=== PATIENT | male | born 1965 ===

== ENCOUNTER 2025-06-09 16:08 | Emergency (ER) | payer OTHER ==
[2025-06-09] MEDS: Ondansetron 4 MG/2 ML SDV IVPUSH ONE (16:16)
[2025-06-09] MEDS: fentaNYL 50 MCG/ML SDV IVPUSH ONE (16:16)
[2025-06-09] MEDS ORDERED: Sodium Chloride 0.9% 10 ML Syringe FLUSH PRN (16:37)
[2025-06-09] MEDS ORDERED: Sodium Chloride 0.9% 2.5 ML Syringe FLUSH PRN (16:37)
[2025-06-09 16:42] LABS: BASOPHILS ABSOLUTE AUTO 0.04 K/uL (0.00-0.20); BASOPHILS PERCENT AUTO 0.3 % (0.0-1.0); EOSINOPHILS ABSOLUTE AUTO 0.02 K/uL (0.00-0.45); EOSINOPHILS PERCENT AUTO 0.2 % (0.0-6.0); IMMATURE GRAN ABSOLUTE AUTO 0.03 K/uL (0.00-0.05); IMMATURE GRAN PERCENT AUTO 0.2 % (0.0-0.4); LYMPHOCYTES ABSOLUTE AUTO 1.79 K/uL (1.00-4.80); LYMPHOCYTES PERCENT AUTO 13.9 % (24.0-44.0); MEAN PLATELET VOLUME 11.3 fL (9.4-12.4); MONOCYTES ABSOLUTE AUTO 0.65 K/uL (0.00-0.80); MONOCYTES PERCENT AUTO 5.1 % (0.0-8.0); NEUTROPHILS ABSOLUTE AUTO 10.33 K/uL (1.80-7.70); NEUTROPHILS PERCENT AUTO 80.3 % (41.0-71.0); NRBC ABSOLUTE 0.00 K/uL (0.00-0.02); NRBC PERCENT 0.0 /100WBC (0.0-0.2); PLATELET COUNT,PLT 218 K/uL (150-400); RED BLOOD CELL COUNT 4.67 M/uL (4.52-5.90); WHITE BLOOD CELL COUNT,WBC 12.86 K/uL (3.9-11.3)
[2025-06-09 16:53] LABS: INR 1.07 (0.86-1.11)
[2025-06-09] MEDS: fentaNYL 50 MCG/ML SDV ONE (17:00)
[2025-06-09] MEDS: Ondansetron 4 MG/2 ML SDV ONE (17:00)
[2025-06-09] MEDS: Diphtheria,Pertussis(Acell),Tetanus Vaccine 0.5 ML Syringe IM ONE (17:02)
[2025-06-09 17:11] LABS: A/G RATIO 1.0 (0.9-1.6); ALANINE AMINOTRANSFERASE,ALT 33.0 IU/L (14-63); ASPARTATE AMNIOTRANSFERASE,AST 35.0 IU/L (15-37); BILIRUBIN TOTAL 0.7 mg/dL (0.2-1.0); BLOOD UREA NITROGEN,BUN 15.0 mg/dL (7.0-18.0); CARBON DIOXIDE,CO2 26.7 mmol/L (21.0-32.0); CHLORIDE,CL 101.0 mmol/L (98-107); CREATININE 1.1 mg/dL (0.8-1.3); EST CRCL DRUG DOSING (CG) 80.34 mL/min; GLUCOSE RANDOM 124.0 mg/dL (74-106); POTASSIUM,K 3.8 mmol/L (3.5-5.1); PRO B-TYPE NATRIUR PEPT,BNPPRO 1360.0 pg/mL (0-125); PROTEIN TOTAL,TP 7.7 g/dL (6.4-8.2); SODIUM,NA 138.0 mmol/L (136-148)
[2025-06-09 17:12] LABS: ESTIMATED GFR 78.0 mL/min (>60)
[2025-06-09] MEDS: Iopamidol 755 MG/ML 500 ML Multipack Bottle IVPUSH STA (19:01)
== END 2025-06-09 20:00 | disposition home or self-care (01) ==
LOC: MW.ED 16:08
DX: S01.112A Laceration without foreign body of left eyelid and periocular area, initial encounter (principal); S01.81XA Laceration without foreign body of other part of head, initial encounter; S27.321A Contusion of lung, unilateral, initial encounter; S09.90XA Unspecified injury of head, initial encounter; S05.11XA Contusion of eyeball and orbital tissues, right eye, initial encounter; J32.9 Chronic sinusitis, unspecified; M54.50 Low back pain, unspecified; M25.552 Pain in left hip; M79.652 Pain in left thigh; I44.7 Left bundle-branch block, unspecified; R79.89 Other specified abnormal findings of blood chemistry; M54.2 Cervicalgia; Z95.0 Presence of cardiac pacemaker; V87.2XXA Person injured in collision between car and pick-up truck or van (traffic), initial encounter; Y92.410 Unspecified street and highway as the place of occurrence of the external cause
CPT/HCPCS: 12015; 36415; 70450; 70486; 71260; 72125; 72128; 72131; 73551; 73562; 74177; 80053; 83690; 83735; 83880; 84484; 85025; 85610; 90471; 90715; 93005; 96374; 96375; 99284; A9270; J2405; J3010; Q9967; 93010; 99285